=== PATIENT | female | born 1995 | race Caucasian/White ===

== ENCOUNTER → 2018-06-04 13:07 | Outpatient (CLI) | payer OTHER, SELFPAY ==
[2018-06-04 14:05] LABS: Color, Urine Yellow (Yellow); Glucose, Dipstick Normal (Normal); Ketone-Dipstick Negative (Negative); Leukocyte Esterase-Dipstick 25 /ul (Negative); Nitrite-Dipstick Negative (Negative); Occult Blood-Urine Negative /ul (Negative); Protein-Dipstick Negative (Negative); Specific Gravity, Urine 1.015 (1.002-1.030); Urine Bilirubin Dipstick Negative (Negative); Urine Clarity Sl. Cloudy (Clear); Urine Urobilinogen Normal (Normal); Urine pH 6.5 (5.0 - 8.0)
[2018-06-04 15:56] LABS: Chlamydia Trachomatis by PCR Negative (Negative); Neisserai gonorrhoeae by PCR Negative (Negative); Probe Check PASS; Sample Adequacy Control PASS; Specimen Processing Control PASS
[2018-06-04 16:16] LABS: AST(SGOT) 15 U/L (15-37); Alanine Aminotransfer ALT/SGPT 10 U/L (13-56); Albumin, Serum 3.8 g/dL (3.2-5.0); Alkaline Phosphatase 57 U/L (45-117); Globulin 4.1 g/dL (2.2-4.2); Protein, Total 7.9 g/dL (6.4-8.2); Thyroid Stim Hormone (TSH) < 0.01 uIU/mL (0.358-3.74)
[2018-06-04 16:22] LABS: Absolute Lymphocyte Count 1.17 X10^3/ul (0.83-4.51); Basophil# 0.01 X10^3/uL; Basophil% 0.2 % (0-1); Eosinophil# 0.02 X10^3/uL; Eosinophils% 0.4 % (0-5); Hematocrit 41.8 % (37-47); Hemoglobin 14.4 g/dl (12.0-15.0); Lymphocyte # 1.17 X10^3/ul (4.0); Lymphocyte % 21.2 % (19-41); Mean Corp Hgb Conc 34.4 g/gl (32-36); Mean Corpuscular Volume 84.3 fL (81-99); Mean Platelet Vol. 11.2 fl (6.2-12.0); Monocyte# 0.31 X10^3/uL; Monocyte% 5.6 % (0-10); Neutrophil % 72.4 % (47-70); Platelet Count 200 K/mm3 (150-450); RBC Distribution Width CV 12.7 % (11.6-14.6); RBC Distribution Width SD 38.6 fl (35.1-43.9); Red Blood Count 4.96 M/mm3 (4.2-5.4); White Blood Count 5.5 K/mm3 (4.4-11.0)
[2018-06-04 16:38] LABS: POSITIVE COUNT NO; POSITIVE DIFFERENTIAL NO; POSITIVE MORPHOLOGY NO
[2018-06-04 16:55] LABS: HIV - WCH Non-Reactive (Nonreactive); Rubella IgG 95.3 IU/mL
[2018-06-05 13:48] LABS: Free T3 3.7 pg/mL (2.18-3.98); T4 Free Direct 1.74 ng/dL (0.76-1.46)
[2018-06-06 16:37] LABS: HEPATITIS B SURFACE AG Negative (Negative); Hep C Antibodies <0.1 s/co ratio (0.0-0.9)
[2018-06-07 01:43] LABS: Prenatal RPR NONREACTIVE (NONREACTIVE)
[2018-06-10 12:09] LABS: HPV HC, High Risk Negative (Negative)
[2018-06-10 12:11] LABS: HPV Reflexed? NOT INDICATED
== END ==
PROVIDERS: Visit Provider Obstetrics & Gynecology
DX: Z34.81 Encounter for supervision of other normal pregnancy, first trimester (principal); R10.11 Right upper quadrant pain
CPT/HCPCS: 36415; 80076; 81002; 84439; 84443; 84481; 85025; 86703; 86762; 86803; 87340; 87491; 87591; 88175; G0145

== ENCOUNTER → 2018-09-25 | Outpatient (CLI) | payer OTHER, SELFPAY ==
[2018-09-25 11:00] LABS: Hemoglobin 11.9 g/dL (12.0-15.0); Mean Corpuscular Hgb 30.8 pg (27.0-32.0); Mean Corpuscular Volume 90.7 fL (81-99); Mean Platelet Vol. 11.2 fl (6.2-12.0); Platelet Count 157 K/mm3 (150-450); RBC Distribution Width CV 13.8 % (11.6-14.6); RBC Distribution Width SD 46.1 fl (35.1-43.9); Red Blood Count 3.86 M/mm3 (4.2-5.4); White Blood Count 8.2 K/mm3 (4.4-11.0)
[2018-09-25 11:18] LABS: Free T3 2.3 pg/mL (2.18-3.98); Glucose Challenge Gest 1H 50g 119 mg/dL (70-140); T4 Free Direct 0.99 ng/dL (0.76-1.46); Thyroid Stim Hormone (TSH) 0.29 uIU/mL (0.358-3.74)
== END | disposition home or self-care (01) ==
LOC: WOBLAB 09:18
PROVIDERS: Visit Provider Obstetrics & Gynecology
DX: Z34.82 Encounter for supervision of other normal pregnancy, second trimester (principal)
CPT/HCPCS: 36415; 82950; 84439; 84443; 84481; 85027

== ENCOUNTER → 2018-11-25 11:33 | Outpatient (CLI) | payer OTHER, SELFPAY | PROVIDERS: Visit Provider Obstetrics & Gynecology | DX: Z36.85 Encounter for antenatal screening for Streptococcus B (principal) | CPT/HCPCS: 87081 ==

== ENCOUNTER 2018-12-20 04:36 | Inpatient (IN) | payer SELFPAY, OTHER ==
[2018-12-20 04:49] VITALS: BMI 27.8
[2018-12-20] MEDS: Lactated Ringers 1,000 ML 50 ML IV (04:55)
[2018-12-20] MEDS: Lactated Ringers 500 ML 999 ML IV (05:00)
[2018-12-20 05:24] LABS: Absolute Lymphocyte Count 1.37 X10^3/uL (0.83-4.51); Absolute Neutrophil Count 6.8 X10^3/uL (2.0-7.7); Basophil# 0.03 X10^3/uL; Basophil% 0.3 % (0-1); Eosinophil# 0.09 X10^3/uL; Hematocrit 37.3 % (37-47); Hemoglobin 12.5 g/dL (12.0-15.0); Lymphocyte # 1.37 X10^3/ul (4.0); Lymphocyte % 15.1 % (19-41); Mean Corp Hgb Conc 33.5 g/dL (32-36); Mean Corpuscular Hgb 30.3 pg (27.0-32.0); Mean Corpuscular Volume 90.3 fL (81-99); Monocyte# 0.72 X10^3/uL; Monocyte% 7.9 % (0-10); NRBC Flagged by Analyzer 0 % (0-5); Neutrophil # 6.79 X10^3/uL (2.7-7.7); Neutrophil % 74.7 % (47-70); Platelet Count 122 K/mm3 (150-450); RBC Distribution Width CV 14.1 % (11.6-14.6); RBC Distribution Width SD 46.7 fl (35.1-43.9); Red Blood Count 4.13 M/mm3 (4.2-5.4); White Blood Count 9.1 K/mm3 (4.4-11.0)
--- NOTE | 2018-12-20 05:53 | HP.PCM_ITS ---
History and Physical Date of Admission: 12/20/18 HISTORY AND PHYSICAL EXAMINATION History of this : 23 yo female Ab1 with EDC 12/22/2018 by 15 weeks 2 days Ultrasound, presents to Labor and Delivery with contraction 39 5/7 wk EGA . care remarkable for - O positive Rubella Immune GBS neg 1.) Okay to see midwives for care, prefers Dr. Bucio for delivery but is okay with others if needed 2.) EDC by 16 wk sono 12/22/18 3.) TSH very low. Normal Free T3 and free T4 Pertinent Past Medical History: None. Allergies: No Known Drug Allergies Medications: During - Supplement (s) [No Strength]; Colace 100 mg capsule; 28 mg iron-800 mcg tablet PAST HISTORY: Breast/Ovarian/Colon Cancers - Denies Infections - Chicken pox Illnesses - GI issues Accidents - no injuries of consequence History of Abnormal PAPS - Denies Hospitalizations - Childbirth SURGICAL HISTORY: 1. None MENSTRUAL HISTORY: LMP Known?- DefiniteAmount/Duration - 5 days, Regularity - Regular, Frequency - monthly days, LMP - 03/27/18, Age Onset Menarche - 13 PAST PREGNANCIES: Total Pregnancies - 2; Full Term Pregnancies - 1; Premature - 0; Abortions, Induced - 0; Abortions, Spontaneous - 1; Ectopics - 0; Multiple Births - 0; Living Children - 1 FAMILY HISTORY: MaternalGrandparent - Heart disorder; PaternalGrandparent - Heart disorder; SOCIAL HISTORY: Alcohol Use - denies drinking Smoking - denies smoking Diet - no special diet Lifestyle - Exercise - biking Employer - Homemaker Illicit Drug Use - denies use of street drugs Sexual Activity - Spouse-Sig Other Name - Adalberto Spouse-Sig Other Occupation - [employer] Children Name(s) - Bryson Control - Review of Systems: Contractions PHYSICAL EXAMINATION General Appearance: 23 yo female in no acute distress Vital Signs: AF, VSS Lungs: Regular rate, rhythm. Breasts: deferred Abdomen: gravid Cervix: 4-5 cm, soft, stretchy per RN check (3 cm in ofc at last visit) Presentation: cephalic Station: Fetus: Size: AGA Heart: Category I tracing Impression /Plan: Intrauterine 39 5/7 wk , presents in early labor with IBOW. Admit for labor and delivery, epidural if desired. Anticipate
[2018-12-20] MEDS: fentaNYL-bupivacaine (epidural) 100 ML BAG EPIDURAL (06:01)
--- NOTE | 2018-12-20 07:14 | PCM.PN.BLA ---
Progress Note LABOR PROGRESS NOTE Comfortable with epidural. feeling a little more on L side, so lying on that side for now AVSS EFM 140s avg variability. Small accels. Some early decelerations, some variable decelerations UCs noted CX per RN check 7 am. 7 cm, stretchy, -2 A/P: 39 5/7 wk labor. IBOW. Anticipate
--- NOTE | 2018-12-20 08:27 | PCM.PN.BLA ---
Progress Note LABOR PROGRESS NOTE Comfortable AVSS EFM 140s avg variability small accels. UCs noted CX 8/-1 VTX LOP AROM clear fluid A/P: 39 5/7 wk labor AROM Anticipate
[2018-12-20] MEDS: Oxytocin 30 units/NS 500 ml 30 UNITS/500 ML IV.SOLN 334 UNITS IV (09:50)
[2018-12-20 12:00] VITALS: BP 111/59; PULSE 70; RESP 18; TEMP 36.6
[2018-12-20] MEDS: 0.9% Saline Lock 10 ML Syringe IV (12:29)
--- NOTE | 2018-12-20 12:48 | PCM.OPRPT ---
Vaginal Delivery Maternal Presentation: Active Labor 39 5/7 wk EGA , labor Amniotic Membrane Rupture Type: Artificial Amniotic Fluid Description: Clear Final DOROTHY: 12/22/18 Gestational age: 39 Weeks and 5 Days Date of Procedure: 12/20/18 Pre-Operative Diagnosis: 39 5/7 wk labor Post-Operative Diagnosis: same Surgery/ Procedure Performed: Spontaneous Vaginal Delivery Type of Anesthesia: Epidural Description of Procedure: of a klein viable male over intact perineum to lacerations. Head delivered LORENZO> OP and nares bulb suctioned on perineum. no nuchal cord noted. Shoulders delivered easily. Infant to maternal abdomen with spont cry. Cord clamped times two and cut. Routine cord blood obtained for typing PP exam; 2nd deg vaginal to perineal laceration repaired to hemostatic, intact with 3-0 Vicryl Rapide No other lacerations noted Placenta delivered by spont expulsion, expression. 3V normal appearing, intact with trailing membranes. Pt and tolerated delivery well. To recovery stable condition Ray Johana and needle counts correct times two EBL 350 cc Presentation: Vertex, LORENZO Placental Delivery Description: Spontaneous, Expressed Placenta Disposition: [facility] Cord Vessel Description: 3 Vessels Cord Entanglement: None Drain: Carlson to straight drain Estimated Blood Loss: 350 A gender: Male (1 minute): 8 (5 minute): 9 Episiotomy Description: None Laceration: Midline, Perineal Extension/lac, Vaginal Extension/lac, 2nd degree Medications given after delivery: IV Pitocin Complications: None
--- NOTE | 2018-12-20 12:54 | DCINST_ITS ---
Discharge Diet: No Restrictions May resume sexual activity in: 4-6 weeks Additional Activity Instructions:: Nothing in the vagina for 4-6 weeks. You may return to work/school in 6 weeks. Additional Instructions: If you experience any of the following, contact your healthcare provider. * Bleeding that soaks a pad every hour for 2 hours * Fever 100.4 or higher * Unrelieved abdominal pain * Problems urinating (including inability to urinate or burning while ur inating). * Visual changes * Severe headache * Flu-like symptoms * Pain or redness in one of both of your breasts * Pain, warmth, tenderness or swelling in your legs, especially the calf area * Frequent nausea and vomiting * Symptoms of depression or anxiety If you experience any of the following, call 911 or go to the nearest Emergency Room. * Chest pain * Problems breathing * Seizure activity * Partial or complete paralysis of a body part, slurred speech, weakness or drooping of the face, or a sudden inability to walk or hold your balance Allergies/Adverse Reactions: Allergies No Known Allergies Allergy (Verified 12/20/18 04:51) Medications to take at Discharge Vits [Prenatabs FA] 1 tab PO DAILY 12/20/18 Please Follow Up With: Karolyn Solomon MD - [phone] When: Call to make an appointment with your doctor in 6 weeks. Primary Care Physician: Care Physician,No Primary [Primary Care Provider] - Test Results: Test results from this visit will be discussed in further detail at your follow- up appointment, if applicable. Proposed Discharge Date: 12/22/18
--- NOTE | 2018-12-20 12:54 | PCM.DCVAG ---
Discharge Diet: No Restrictions May resume sexual activity in: 4-6 weeks Additional Activity Instructions:: Nothing in the vagina for 4-6 weeks. You may return to work/school in 6 weeks. Additional Instructions: If you experience any of the following, contact your healthcare provider. Bleeding that soaks a pad every hour for 2 hours Fever 100.4 or higher Unrelieved abdominal pain Problems urinating (including inability to urinate or burning while urinating). Visual changes Severe headache Flu-like symptoms Pain or redness in one of both of your breasts Pain, warmth, tenderness or swelling in your legs, especially the calf area Frequent nausea and vomiting Symptoms of depression or anxiety If you experience any of the following, call 911 or go to the nearest Emergency Room. Chest pain Problems breathing Seizure activity Partial or complete paralysis of a body part, slurred speech, weakness or drooping of the face, or a sudden inability to walk or hold your balance Allergies/Adverse Reactions: Allergies No Known Allergies Allergy (Verified 12/20/18 04:51) Medications to take at Discharge Vits [Prenatabs FA] 1 tab PO DAILY 12/20/18 Please Follow Up With: Karolyn Solomon MD - [phone] When: Call to make an appointment with your doctor in 6 weeks. Primary Care Physician: Care Physician,No Primary [Primary Care Provider] - Test Results: Test results from this visit will be discussed in further detail at your follow-up appointment, if applicable. Proposed Discharge Date: 12/22/18
[2018-12-20 14:55] VITALS: BP 118/59; PULSE 65; RESP 18; TEMP 36.8
[2018-12-20] MEDS: Acetaminophen 500 MG Tablet 1000 MG PO (14:55)
[2018-12-20] MEDS: Ibuprofen 600 MG Tablet PO (19:36)
[2018-12-20 19:37] VITALS: BP 117/70; PULSE 76; RESP 16; TEMP 36.5
[2018-12-21] VITALS: BP 110/57; PULSE 73; RESP 16; TEMP 36.2
[2018-12-21 04:00] VITALS: BP 102/56; PULSE 71; RESP 16; TEMP 36.6
[2018-12-21] MEDS: Acetaminophen 500 MG Tablet 1000 MG PO (05:16)
[2018-12-21] MEDS: Ibuprofen 600 MG Tablet PO (08:18)
[2018-12-21 08:25] VITALS: BP 111/57; PULSE 69; RESP 16; TEMP 36.3; O2SAT 99
--- NOTE | 2018-12-21 11:44 | PCM.PN.OB ---
Subjective: Experiencing cramping, well controlled with Ibuprofen, minimal perineal pain; tolerating diet, passing gas; infant bottle feeding well; planning condoms for contraception.; desires DC home today Objective: AVSS Breasts soft Fundus firm, midline, u/1, lochia small Perineal repair well approximated, mild edema, no drainage, bruising or erythema - Physical Exam Vitals/I&O's: Vital Signs Temp Pulse Resp BP Pulse Ox 97.3 F L 69 16 111/57 L 99 12/21/18 08:25 12/21/18 08:25 12/21/18 08:25 12/21/18 08:25 12/21/18 08:25 Oxygen Delivery Method Room Air Weight: 172 lb 9.6 oz Body Mass Index (BMI) 27.8 Intake and Output for Last 24 Hours 12/19/18 12/20/18 12/21/18 23:59 23:59 23:59 Intake Total 1220.00 / 1220.00 Output Total 1400 / 1400 Balance -180.00 / -180.00 General: Alert, Oriented x3, Cooperative, No apparent distress HEENT: PERRLA, EOMI Oral: Moist Mucosa Neck: Supple Lungs: Clear to auscultation, Normal air movement Cardiovascular: Regular rate, Regular Rhythm Abdomen: Bowel Sounds Present, Soft, Non Tender, Non-Distended, Passing Flatus Extremities: No edema, Capillary Refill Less than 3 Seconds, No Calf Tenderness Skin: No rashes Musculoskeletal: No Tenderness to Palpation of Joints or Extremities Neurological: Cranial nerves II-XII grossly intact, Deep Tendon Reflexes 2+/4 and Symmetrical Psych/Mental Status: Normal Affect, Appropriate, Alert and oriented to time, place, person, mood and affect Current Medications Acetaminophen (Tylenol) 1,000 mg PO Q8H PRN PRN PRN Reason: Pain Score 1-3/10 Last Admin: 12/21/18 05:16 Dose: 1,000 mg Documented by: Bisacodyl (Dulcolax) 10 mg RECTAL UD PRN PRN Reason: If no BM Dibucaine (Dibucaine) 1 applic TOPICAL TID PRN PRN; Protocol PRN Reason: Discomfort Hydrocortisone (Hytone) 1 applic TOPICAL TID PRN PRN; Protocol PRN Reason: Discomfort Ibuprofen (Motrin) 600 mg PO Q6H PRN PRN PRN Reason: Pain Score 1-3/10 Last Admin: 12/21/18 08:18 Dose: 600 mg Documented by: Methylergonovine Maleate (Methergine) 0.2 mg IM X1 PRN PRN Reason: Excess bleeding/uterine atony Senna/Docusate Sodium (Senokot-S, Rebecca-Colace) 1 - 2 tablet PO DAILY PRN PRN PRN Reason: Constipation Simethicone (Mylicon) 80 mg PO PCHS PRN PRN Reason: Indigestion/Stomach pain Medical Necessity - Tobacco Use Smoking Status: Never smoker Assessment/Plan Assessment: 23yo G3 now P2012 delivered at 39w7d by 15w2d US Day #1, normal involution, normal course Plan: Discharge teaching done . Discharge home today RTO 6 weeks for PP visit
[2018-12-21 14:00] VITALS: BP 115/62; PULSE 69; RESP 16; TEMP 36.4; O2SAT 97
== END 2018-12-21 14:40 | disposition home or self-care (01) | DRG 807 ==
LOC: WPOUT 04:39 → WP 04:39
PROVIDERS: Admitting Provider Obstetrics & Gynecology; Referring Provider Obstetrics & Gynecology; Visit Provider Obstetrics & Gynecology
DX: O76 Abnormality in fetal heart rate and rhythm complicating labor and delivery (principal); O70.1 Second degree perineal laceration during delivery; Z37.0 Single live birth; Z3A.39 39 weeks gestation of pregnancy
CPT/HCPCS: 59025; 59050; 85025; 86850; 86900; 86901; 99218; J7120; A4216; G0378

== ENCOUNTER → 2021-11-30 | Outpatient (CLI) | payer OTHER, SELFPAY ==
[2021-11-30 16:18] LABS: Absolute Neutrophil Count 7.3 X10^3/uL (2.0-7.7); Basophil# 0.03 X10^3/uL; Basophil% 0.3 % (0-1); Eosinophil# 0.07 X10^3/uL; Eosinophils% 0.8 % (0-5); Hemoglobin 12.6 g/dL (12.0-15.0); Mean Corp Hgb Conc 33.2 g/dL (32-36); Mean Corpuscular Volume 87.6 fL (81-99); Mean Platelet Vol. 11.7 fl (6.2-12.0); Monocyte# 0.55 X10^3/uL; NRBC Flagged by Analyzer 0 % (0-5); Neutrophil # 7.31 X10^3/uL (2.7-7.7); Neutrophil % 79.4 % (47-70); Platelet Count 239 K/mm3 (150-450); RBC Distribution Width CV 12.1 % (11.6-14.6); RBC Distribution Width SD 39.1 fl (35.1-43.9); Red Blood Count 4.34 M/mm3 (4.2-5.4); White Blood Count 9.2 K/mm3 (4.4-11.0)
[2021-12-01 08:45] LABS: HIV - WCH Non-Reactive (Nonreactive); Hepatitis B Surface Antigen Non-Reactive (Nonreactive); Hepatitis C Antibody Non-Reactive (Nonreactive); Rubella IgG Reactive (Nonreactive); Syphilis Antibodies Non-reactive
[2021-12-03 14:32] LABS: V-Zoster IgG (Immunity) 1407 index (Immune >165)
[2021-12-06 14:29] LABS: Chlamydia By Nucleic Acid AMP Negative (Negative)
[2021-12-06 16:10] LABS: Gonococcus By Nucleic Acid AMP Negative (Negative)
[2021-12-07 12:41] LABS: HPV Reflexed? NOT INDICATED
== END | disposition home or self-care (01) ==
LOC: WOBLAB 14:57
PROVIDERS: Visit Provider Obstetrics & Gynecology
DX: Z34.82 Encounter for supervision of other normal pregnancy, second trimester (principal)
CPT/HCPCS: 36415; 85025; 86703; 86762; 86780; 86787; 86803; 87086; 87340; 87491; 87591; 88175; G0145

== ENCOUNTER → 2022-02-23 | Outpatient (CLI) | payer OTHER, SELFPAY ==
[2022-02-23 10:18] LABS: Absolute Lymphocyte Count 1.12 X10^3/uL (0.83-4.51); Absolute Neutrophil Count 6.7 X10^3/uL (2.0-7.7); Basophil# 0.03 X10^3/uL; Basophil% 0.4 % (0-1); Eosinophil# 0.11 X10^3/uL; Eosinophils% 1.3 % (0-5); Hematocrit 33.9 % (37-47); Hemoglobin 11.1 g/dL (12.0-15.0); Lymphocyte # 1.12 X10^3/ul (0.83-4.51); Lymphocyte % 13.1 % (19-41); Mean Corp Hgb Conc 32.7 g/dL (32-36); Mean Corpuscular Hgb 29.6 pg (27.0-32.0); Mean Corpuscular Volume 90.4 fL (81-99); Monocyte# 0.54 X10^3/uL; Monocyte% 6.3 % (0-10); NRBC Flagged by Analyzer 0 % (0-5); Neutrophil # 6.65 X10^3/uL (2.7-7.7); Platelet Count 177 K/mm3 (150-450); RBC Distribution Width CV 13.3 % (11.6-14.6); RBC Distribution Width SD 43.8 fl (35.1-43.9); Red Blood Count 3.75 M/mm3 (4.2-5.4); White Blood Count 8.5 K/mm3 (4.4-11.0)
[2022-02-23 10:50] LABS: Glucose Challenge Gest 1H 50g 89 mg/dL (70-140)
== END | disposition home or self-care (01) ==
LOC: WOBLAB 09:32
PROVIDERS: Visit Provider Obstetrics & Gynecology
DX: Z34.82 Encounter for supervision of other normal pregnancy, second trimester (principal)
CPT/HCPCS: 36415; 82950; 85025

== ENCOUNTER → 2022-05-05 | Outpatient (CLI) | payer OTHER, SELFPAY ==
[2022-05-05 10:29] LABS: Absolute Lymphocyte Count 1.26 X10^3/uL (0.83-4.51); Basophil# 0.03 X10^3/uL; Basophil% 0.3 % (0-1); Eosinophil# 0.11 X10^3/uL; Eosinophils% 1.2 % (0-5); Hemoglobin 11.4 g/dL (12.0-15.0); Lymphocyte # 1.26 X10^3/ul (0.83-4.51); Lymphocyte % 13.9 % (19-41); Mean Corp Hgb Conc 32.6 g/dL (32-36); Mean Corpuscular Hgb 28.9 pg (27.0-32.0); Mean Corpuscular Volume 88.6 fL (81-99); Mean Platelet Vol. 11.7 fl (6.2-12.0); Monocyte# 0.61 X10^3/uL; Monocyte% 6.7 % (0-10); NRBC Flagged by Analyzer 0 % (0-5); Neutrophil # 6.95 X10^3/uL (2.7-7.7); Platelet Count 186 K/mm3 (150-450); RBC Distribution Width CV 13.2 % (11.6-14.6); RBC Distribution Width SD 42.9 fl (35.1-43.9); Red Blood Count 3.95 M/mm3 (4.2-5.4)
[2022-05-05 10:59] LABS: Syphilis Antibodies Non-reactive
== END | disposition home or self-care (01) ==
LOC: WOBLAB 09:27
PROVIDERS: Visit Provider Obstetrics & Gynecology
DX: Z34.83 Encounter for supervision of other normal pregnancy, third trimester (principal); Z36.85 Encounter for antenatal screening for Streptococcus B
CPT/HCPCS: 36415; 85025; 86780; 87081

== ENCOUNTER 2022-05-30 22:45 | Inpatient (IN) | payer OTHER, SELFPAY ==
[2022-05-30] VITALS (21 sets, daily range): BP systolic 100–137; BP diastolic 51–87; PULSE 71–87; TEMP 36.2–36.7; O2SAT 81–100; BMI 29.3
--- NOTE | 2022-05-30 17:25 | PCM.HP.BLA ---
History and Physical Date of Admission: 05/30/22 HPI: 27-year-old G4, P2 at 39/4 weeks, DOROTHY 06/02/2022 by LMP consistent with 13-week ultrasound, presenting for contractions. Reports regular contractions for the past 1 to 2 hours. Denies leaking of fluid or vaginal bleeding. Reports movement. Denies headache or vision changes, chest pain or shortness of breath, nausea or vomiting, diarrhea constipation, fevers or chills. 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 SAB G2: 39-week G3: 39-week Medical history: Denies Surgical history: Denies Medications: vitamin Allergies: No known drug allergies Family history: Denies history of blood clots or bleeding disorders Social history: Denies tobacco, alcohol, drug use Review of system: Negative otherwise stated above Physical exam: Vitals: Blood pressure 113/76, heart rate 85, temp 97.2 ?F, O2 saturation 99% on room air General: No acute distress HEENT: Normal cephalic/atraumatic, PERRLA Cardiorespiratory: No increased effort Abdomen: Soft, nontender, gravid Extremities: No edema Musculoskeletal: Strength out of 5 throughout extremities Neurologic: Cranial nerves II through XII grossly intact, no focal deficits heart rate:150/mod kade/+accel/no decel [place]: q4-6 Assessment/Plan: G4, P2 at 39/4 weeks, rule out labor. status reassuring. We will recheck cervix in approximately 2 hours. Discussed plan with patient and her .
[2022-05-30] MEDS: Lactated Ringers 1,000 ML 50 ML IV (20:30)
[2022-05-30 21:57] LABS: Absolute Lymphocyte Count 2.04 X10^3/uL (0.83-4.51); Absolute Neutrophil Count 8.3 X10^3/uL (2.0-7.7); Basophil# 0.04 X10^3/uL; Basophil% 0.4 % (0-1); Eosinophils% 0.9 % (0-5); Hematocrit 34.4 % (37-47); Hemoglobin 11.1 g/dL (12.0-15.0); Lymphocyte # 2.04 X10^3/ul (0.83-4.51); Lymphocyte % 18.2 % (19-41); Mean Corp Hgb Conc 32.3 g/dL (32-36); Mean Corpuscular Hgb 28.1 pg (27.0-32.0); Mean Corpuscular Volume 87.1 fL (81-99); Mean Platelet Vol. 12.8 fl (6.2-12.0); Monocyte# 0.66 X10^3/uL; Monocyte% 5.9 % (0-10); NRBC Flagged by Analyzer 0 % (0-5); Neutrophil # 8.26 X10^3/uL (2.7-7.7); Neutrophil % 73.8 % (47-70); Platelet Count 169 K/mm3 (150-450); RBC Distribution Width CV 13.8 % (11.6-14.6); RBC Distribution Width SD 43.5 fl (35.1-43.9); Red Blood Count 3.95 M/mm3 (4.2-5.4); White Blood Count 11.2 K/mm3 (4.4-11.0)
[2022-05-30 22:34] LABS: Syphilis Antibodies Non-reactive
[2022-05-30] MEDS: fentaNYL-bupivacaine (epidural) 100 ML BAG EPIDURAL (23:28)
[2022-05-31] VITALS (30 sets, daily range): BP systolic 95–128; BP diastolic 50–81; PULSE 64–96; RESP 16–18; TEMP 36.6–37.6; O2SAT 97–100
--- NOTE | 2022-05-31 00:20 | PCM.PN.OB ---
Subjective Subjective Comfortable with epidural. Objective Data Objective Data Vital Signs: Vital Signs Temp Pulse BP Pulse Ox 98.0 F 71 105/57 L 81 05/30/22 23:04 05/30/22 23:53 05/30/22 23:53 05/30/22 23:57 Weight: 84.912 kg Body Mass Index (BMI) 29.3 Intake & Output: Intake and Output for Last 24 Hours 05/29/22 05/30/22 05/31/22 23:59 23:59 23:59 Intake Total 799.45 / 799.45 Balance 799.45 / 799.45 Lab / Micro Data Attestation: I reviewed the patient's lab results. Result Diagrams: 05/30/22 21:30 Labs: Laboratory Results - last 24 hr 05/30/22 21:30: WBC 11.2 H, RBC 3.95 L, Hgb 11.1 L, Hct 34.4 L, MCV 87.1, MCH 28.1, MCHC 32.3, RDW Std Deviation 43.5, RDW Coeff of Gabrielle 13.8, Plt Count 169, MPV 12.8 H, Immature Gran % (Auto) 0.800, Neut % (Auto) 73.8 H, Lymph % (Auto) 18.2 L, Dickinson % (Auto) 5.9, Eos % (Auto) 0.9, Baso % (Auto) 0.4, Absolute Neuts (auto) 8.3 H, Absolute Lymphs (auto) 2.04, Nucleated RBC % 0 05/30/22 21:30: Syphilis Total Ab Non-reactive 05/30/22 21:30: Blood Type O POSITIVE, Antibody Screen NEGATIVE Physical Exam Const alert, oriented x3 and no apparent distress Resp normal respiratory effort GI soft to palpation and non-tender Inspection: gravid Narrative: /-1 Extremity no pedal edema NST FHR Rate Baby A Baseline: 135 Variability:: Moderate Accelerations:: 15 x 15 Decelerations:: None FHR Category:: Category I Uterine Activity:: q6 Assessment & Plan (1) Active labor at term: PLAN: G4, P2 at 39/5 weeks admitted in active labor. AROM clear fluid. Continue expectant management.
[2022-05-31] MEDS: Lactated Ringers 1,000 ML 200 ML IV (00:32)
[2022-05-31] MEDS: Ondansetron 4 MG/2 ML Vial IV (01:23)
[2022-05-31] MEDS: LACTATED RINGERS 500 ML 999 ML IV (03:01)
[2022-05-31] MEDS: Oxytocin 15 Units/NS 250ml 15 UNITS/250 ML IV.SOLN 83 UNITS IV (03:36)
[2022-05-31] MEDS: Oxytocin 10 UNITS/ML Vial IM (03:36)
--- NOTE | 2022-05-31 03:45 | EX.PCM.OBRPT ---
Maternal Data Information Final DOROTHY: 06/02/22 Vaginal Delivery Operative Information Date of Procedure: 05/31/22 Pre-Operative Diagnosis: Chauhan intrauterine at term Post-Operative Diagnosis: Chauhan intrauterine at term Surgery / Procedure Performed: Spontaneous Vaginal Delivery Type of Anesthesia: Epidural Estimated Blood Loss: 400cc Findings Description of Procedure: Spontaneous vaginal delivery of viable infant female. Nuchal cord x1, loose, reduced. Baby to mom. Cord clamped and cut. Spontaneous delivery of placenta. Second-degree laceration repaired in the usual fashion, hemostatic. A Gender: Female (1 minute): 7 (5 minute): 8 Complication Complications: None
--- NOTE | 2022-05-31 07:45 | NURSING ---
report given to Vickie Deal RN who is assuming care of pt at this time
[2022-05-31] MEDS: Ibuprofen 600 MG Tablet PO (09:22)
[2022-05-31] MEDS: Acetaminophen 500 MG Tablet 1000 MG PO (14:13)
[2022-06-01] VITALS (8 sets, daily range): BP systolic 117–120; BP diastolic 69–72; PULSE 64–98; RESP 15–18; TEMP 36.4–36.6; O2SAT 97–99
[2022-06-01] MEDS: Ibuprofen 600 MG Tablet PO (00:54)
[2022-06-01] MEDS: Acetaminophen 500 MG Tablet 1000 MG PO (00:54)
--- NOTE | 2022-06-01 07:28 | PCM.PN.OB ---
Subjective Subjective Patient feeling well. Lochia minimal. Formula feeding. Objective Data Objective Data Vital Signs: Vital Signs Temp Pulse Resp BP Pulse Ox O2 Del Method 97.9 F 64 15 117/69 99 Room Air 06/01/22 03:54 06/01/22 03:55 06/01/22 03:54 06/01/22 03:55 06/01/22 03:54 06/01/22 03:54 Oxygen Delivery Method Room Air Weight: 84.912 kg Body Mass Index (BMI) 29.3 Intake & Output: Intake and Output for Last 24 Hours 05/30/22 05/31/22 06/01/22 23:59 23:59 23:59 Intake Total 799.45 / 799.45 1296.87 / 1296.87 Output Total 1900 / 1900 Balance 799.45 / 799.45 -603.13 / -603.13 Lab / Micro Data Attestation: I reviewed the patient's lab results. Result Diagrams: 05/30/22 21:30 Physical Exam Const alert, oriented x3 and no apparent distress HEENT normocephalic Head and Scalp: atraumatic Neck full ROM Resp normal respiratory effort Cardio regular rate GI normal to inspection, nondistended, normoactive bowel sounds GI Narrative: Uterus 2 cm below umbilicus Back/Spine normal ROM Extremity normal to inspection Extremity Narrative: Minimal pedal edema Neuro no focal motor deficits and no sensory deficits noted Psych mental status grossly normal and affect normal Assessment & Plan (1) Vaginal delivery: PLAN: day 1 status post . Feeling well. Formula feeding. Desires home-going today.
--- NOTE | 2022-06-01 07:29 | DCINST_ITS ---
Discharge Instructions Diet Discharge Diet: No restrictions Activity Discharge Activity: Return to Normal Activity and May Shower May resume sexual activity in: 4-6 weeks Weight Bearing Status: Weight bearing as tolerated Lifting Restrictions: No greater than 25 pounds Dressing / Incision Call your doctor if you observe: Fever of 101 or Higher, Change in Color, Inability to urinate, Using more than 1 pad per hour, Shortness of breath, Dizziness, Swelling in the ankles, Chest pain and Calf discomfort Follow Up Care Please Follow Up With: Saqib Campos MD When: 6-week visit Test Results: Test results from this visit will be discussed in further detail at your follow- up appointment, if applicable. Discharge Plan Admission Admit Date/Time: 05/30/22 22:45 Primary Reason for Your Visit: Vaginal delivery Attending Provider: Shelbi Campos Primary Care Provider: Care Physician,Faith Primary Discharge Orders/Prescriptions Prescriptions: No Action vit,[id number] 1 TABLET tablet 1 tab PO DAILY Referrals / Follow Up: Care Physician,No Primary [Primary Care Provider] - Disposition Disposition (needs filled in before D/C Order can be placed): Home, Self Care
== END 2022-06-01 11:35 | disposition home or self-care (01) | DRG 807 ==
LOC: WPOUT 22:47 → WP 22:47
PROVIDERS: Admitting Provider Student in an Organized Health Care Education/Training Program; Referring Provider Student in an Organized Health Care Education/Training Program; Visit Provider Student in an Organized Health Care Education/Training Program
DX: O70.1 Second degree perineal laceration during delivery (principal); Z37.0 Single live birth; O69.81X0 Labor and delivery complicated by cord around neck, without compression, not applicable or unspecified; Z3A.39 39 weeks gestation of pregnancy
CPT/HCPCS: 59025; 59050; 85025; 86780; 86850; 86900; 86901; 99221; J7120; G0378; J2405